=== PATIENT | male | born 1975 | race Caucasian/White ===

== ENCOUNTER 2016-07-26 15:53 | Emergency (ER) | payer SELFPAY ==
[~2016-07-26] VITALS: Ht 180.3 cm; Wt 85.0 kg
[~2016-07-26 15:53] MED LIST: DOXY100 PO; IBUP800T23 PO
[2016-07-26 15:54] VITALS: BP 148/84; PULSE 76; RESP 14; TEMP 98; O2SAT 98
--- NOTE | 2016-07-26 16:22 | PD ---
HPI Chief Complaint: Injury Time Seen by Provider: 16:15 Travel History International Travel<30 days: No Contact w/Intl Traveler<30days: No Traveled to known affect area: No History of Present Illness HPI 41-year-old right-hand dominant male presents for evaluation of right hand pain. 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 This morning he was sparring with gloves on when he hit someone in the head. He now has pain in the right hand primarily in the distal aspect of the right fourth metacarpal region. Pain is an aching pain that is worse with movement. He denies any other injuries and he has no other complaints. PFSH Past Medical History Cancer: No Diabetes: No Hepatitis: No Hiatal Hernia: No Thyroid Disease: No Social History Alcohol Use: No (occasional) Tobacco Use: No Substance Use: No Allergies-Medications (Allergen,Severity, Reaction): Coded Allergies: Penicillin (Verified Allergy, Mild, 07/26/16) Reported Meds & Prescriptions Reported Meds & Active Scripts Active No Active Prescriptions or Reported Medications Review of Systems Musculoskeletal: Positive: Limited ROM, Pain Skin: Positive Other (denies open wounds or fight bites) Physical Exam Narrative GENERAL: Well-developed SKIN: Warm and dry. There is a tiny old abrasion to the dorsal surface of the right hand. CARDIOVASCULAR: Regular rate and rhythm. No murmur appreciated. RESPIRATORY: No accessory muscle use. Clear to auscultation. Breath sounds equal bilaterally. MUSCULOSKELETAL: Tender to palpation distal right fourth MCP region of the right hand. Pain with range of motion. Distal sensation and pulses are preserved. Data Data Last Documented VS Vital Signs Date Time Temp Pulse Resp B/P Pulse Ox O2 Delivery O2 Flow Rate FiO2 07/26/16 15:54 98.0 76 14 148/84 98 Room Air Orders Hand, Complete ([id number]) (07/26/16 ) Splint Or Brace Apply/Monitor (07/26/16 17:23) Radiology Film Requests (07/26/16 ) [facility] Medical Decision Making Medical Screen Exam Complete: Yes Emergency Medical Condition: Yes Medical Record Reviewed: Yes Differential Diagnosis Contusion, abrasion, fracture Narrative Course X-ray imaging reveals incomplete fracture of the fourth metacarpal bone. He is being discharged with a copy of his x-ray on CD as well as an ulnar gutter splint. Diagnosis Primary Impression: Fracture of fourth metacarpal bone Qualified Code: S62.304A - Closed nondisplaced fracture of fourth metacarpal bone of right hand, unspecified portion of metacarpal, initial encounter Referrals: Mark Chery MD Additional Instructions: Do not remove the splint. Take Tylenol or Motrin for discomfort. Follow up with a hand surgeon such as Dr. Chery in 1-2 weeks. Return for any emergent medical conditions. Med/Other Pt SpecificInfo: Orthopedic Instructions Scripts No Active Prescriptions or Reported Meds Disposition: 01 DISCHARGE HOME Condition: Stable Darius Bolton Jul 26, 2016 16:22
--- NOTE | 2016-07-26 16:48 | RADRPT ---
EXAM DATE/TIME: 07/26/2016 16:40 [facility] COMPARISON: No previous studies available for comparison. INDICATIONS : Injured right hand when boxing this morning, pain is most severe on 4th digit and metacarpal of right hand MEDICAL HISTORY : previous fracture of 4th digit SURGICAL HISTORY : None. ENCOUNTER: Initial ACUITY: 1 day PAIN SCORE: 8/10 LOCATION: Right hand FINDINGS: Three view examination of the right hand demonstrates an incomplete fracture involving the dorsal cor wale of the fourth metacarpal bone. The carpal bones appear intact. The interphalangeal and metacar pophalangeal joints are intact. Bony mineralization is normal. Marked bony hypertrophy of the fourth PIP, chronic CONCLUSION: Incomplete fracture of the fourth metacarpal bone. Hans Joy MD on July 26, 2016 at 16:44 Board Certified Radiologist. This report was verified electronically.
== END 2016-07-26 18:05 | disposition home or self-care (01) ==
LOC: NEPB 15:53
DX: S62.304A Unspecified fracture of fourth metacarpal bone, right hand, initial encounter for closed fracture (principal); W51.XXXA Accidental striking against or bumped into by another person, initial encounter; Y93.71 Activity, boxing
CPT/HCPCS: 29125; 73130